=== PATIENT | female | born 1985 | race Caucasian/White ===

== ENCOUNTER 2018-04-29 06:57 | Inpatient (IN) | payer OTHER ==
[~2018-04-29] VITALS: Ht 157.5 cm; Wt 68.0 kg
[2018-04-29] MEDS ORDERED: PRENATAL TABLE1 EACH PO (08:50)
[2018-04-29] MEDS ORDERED: PNEU16DI2 (08:50)
== END 2018-05-01 12:44 | disposition home or self-care (01) | DRG 775 ==
LOC: LDR 06:57 → OB/GYN 06:57 → LDR 08:04 → OB/GYN 22:31
PROC: 10E0XZZ Delivery of Products of Conception, External Approach (ICD-10-PCS; principal; 2018-04-29)
PROC: 0W8NXZZ Division of Female Perineum, External Approach (ICD-10-PCS; 2018-04-29)
PROC: 3E033VJ Introduction of Other Hormone into Peripheral Vein, Percutaneous Approach (ICD-10-PCS; 2018-04-29)
PROC: 4A1HXCZ Monitoring of Products of Conception, Cardiac Rate, External Approach (ICD-10-PCS; 2018-04-29)
DX: O76 Abnormality in fetal heart rate and rhythm complicating labor and delivery (principal); O24.420 Gestational diabetes mellitus in childbirth, diet controlled; Z3A.39 39 weeks gestation of pregnancy; Z37.0 Single live birth